=== PATIENT | female | born 1985 | race Caucasian/White ===

== ENCOUNTER → 2020-06-14 10:53 | Outpatient (BNVA) | payer OTHER, SELFPAY | PROVIDERS: Visit Provider Nurse Practitioner Family | DX: E03.9 Hypothyroidism, unspecified (principal) | CPT/HCPCS: 84443 ==

== ENCOUNTER 2020-09-10 14:51 | Outpatient (CLI) | payer OTHER, SELFPAY ==
--- NOTE | 2020-09-10 15:18 | XR_ITS ---
WS: [id number] CERVICAL SPINE 3 VIEWS HISTORY: M54.2 - Cervicalgia COMPARISON: None available. Straightening and slight reversal normal cervical lordosis centered at C5-C6. C5 retrolisthesis by 3 mm. Small osteophytes at C5 and C6. No fracture. Lateral masses are aligned. Odontoid is intact. Soft tissues are normal. XR/XR cervical spine 3V* [id number] IMPRESSION: 1. Straightening and reversal normal cervical lordosis centered at C5-6. 2. C5 retrolisthesis by 3 mm.
== END 2020-09-10 14:52 | disposition home or self-care (01) ==
PROVIDERS: PCP Nurse Practitioner Family; Visit Provider Nurse Practitioner Family
DX: M54.2 Cervicalgia (principal)
CPT/HCPCS: 72040

== ENCOUNTER → 2021-12-02 16:03 | Outpatient (BNVA) | payer BC, SELFPAY | PROVIDERS: PCP Nurse Practitioner Family; Visit Provider Nurse Practitioner Family | DX: R30.0 Dysuria (principal); R31.9 Hematuria, unspecified; N39.0 Urinary tract infection, site not specified | CPT/HCPCS: 81000; 87086 ==

== ENCOUNTER 2022-03-02 17:42 | Emergency (ER) | payer BC, SELFPAY ==
[2022-03-02 17:59] VITALS: BP 156/124; PULSE 123; RESP 20; TEMP 37.3; O2SAT 96
--- NOTE | 2022-03-02 18:07 | ECG_ITS ---
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 Measurements Intervals [place] Rate: 132 P: 47 KS: 127 QRS: 86 QRSD: 82 T: 33 QT: 379 QTc: 563 Interpretive Statements SINUS TACHYCARDIA NONSPECIFIC T-WAVE ABNORMALITY No previous ECG available for comparison Electronically Signed On 03-03-2022 6:19:05 VENEER TRIMMER by Austin Conteh M.D. [email or web address] Investment Fundsumma health.Wize/store/NU/[id number] f
--- NOTE | 2022-03-02 18:23 | XRR_ITS ---
PROCEDURE INFORMATION: Exam: XR Chest Exam date and time: 03/02/2022 6:32 PM Age: 36 years old Clinical indication: Radiating; Patient HX: Chest pain and hypertension; Additional info: Chest pain, HTN TECHNIQUE: Imaging protocol: Radiologic exam of the chest. Views: 1 view. COMPARISON: CR XR cervical spine 3V* [id number] 09/10/2020 3:22 PM FINDINGS: Lungs: Mildly hyperaerated lungs consistent with deep inspiratory effort vs reactive airway disease vs mild COPD . Pleural spaces: Unremarkable. No pleural effusion. No pneumothorax. Heart/Mediastinum: Unremarkable. No cardiomegaly. Bones/joints: Unremarkable. Other findings: Metallic postoperative changes over the thoracolumbar spine with metallic artifact. XR/XR chest 1V portable [id number] IMPRESSION: Mildly hyperaerated lungs consistent with deep inspiratory effort vs reactive airway disease vs mild COPD .
[2022-03-02 18:57] LABS: Basophils # 0.1 10^3/uL (0.0-0.1); Eosinophils % 0.2 %; Hematocrit 47.2 % (37.0-47.0); Hemoglobin 16.4 g/dL (11.5-15.3); Lymphocytes # 1.2 10^3/uL (0.8-4.8); Lymphocytes % 24.3 %; Mean Corpuscular HGB Conc 34.7 g/dL (30.0-36.0); Mean Corpuscular Volume 89.2 fl (81-99); Mean Platelet Volume 10.2 fL (7.4-10.4); Monocytes # 0.8 10^3/uL (0.2-0.9); Monocytes % 16.1 %; Neutrophils # 2.97 10^3/uL (1.8-7.7); Neutrophils % 58.2 %; Nucleated Red Blood Cells % 0 %; Platelet Count 269 10^3/cmm (130-400); Red Blood Count 5.29 10^6/uL (4.1-5.3); Red Cell Distribution Width 12.2 % (12.1-15.1); White Blood Count 5.1 10^3/uL (4.0-10.0)
[2022-03-02 19:16] LABS: D Dimer 0.34 ug/mIFEU (0-0.59)
[2022-03-02 19:28] LABS: Troponin(5th) Baseline 6 ng/L (0-10)
[2022-03-02 19:34] LABS: Alanine Aminotransferase 18 U/L (0-33); Albumin Level 4.1 g/dL (3.5-5.2); Alkaline Phosphatase 98 U/L (35-105); Anion Gap 17.6 (5-19); Aspartate Amino Transferase 18 U/L (0-32); Blood Urea Nitrogen 9 mg/dL (6-20); Calcium 9.2 mg/dL (8.5-10.5); Carbon Dioxide 24 mmol/L (22-29); Chloride 99 mmol/L (98-107); Globulin 3.9 g/dL (1.3-4.6); Glomerular Filtration Rate 80.3 mL/min (90-130); Glucose 110 mg/dL (65-115); NT Pro B Type Natriuretic Pept 5 pg/mL (0-125); Osmolality Calculated 285 mOsm/kg (285-295); Sodium 138 mmol/L (136-145); Total Bilirubin 0.7 mg/dL (0.15-1.2)
[2022-03-02 19:39] LABS: Potassium 2.6 mmol/L (3.5-5.1)
--- NOTE | 2022-03-02 19:40 | PC.NURSE ---
Critical lab K+ 2.6. Jeremiah Perrin notified
[2022-03-02] MEDS: potassium chloride ER 20 mEq Tablet 40 MEQ PO (20:12)
[2022-03-02 20:13] VITALS: BP 169/99; PULSE 117; RESP 18; O2SAT 97
--- NOTE | 2022-03-02 20:16 | ED_ITS ---
Documented by User: CHADWICK Majano 03/02/22 20:39 HPI - Chest Pain General: Chief Complaint: Chest Pain Stated Complaint: high BP Time Seen by Provider: 03/02/22 20:15 History of Present Illness: 36-year-old female comes in today with complaints of headache, chest discomfort, rapid heart rate, and elevated blood pressure. Patient has been treated for hypertension over the last couple of months with hydrochlorothiazide. Patient is noticed over the past 2 weeks an increase in her blood pressure. Patient appears nontoxic. Patient is alert and responds appropriately to questions. Patient appears in no pain. Patient reports improvement in chest discomfort since arriving to the ER. Associated symptoms: Deny dyspnea or fever(s) Review of Systems Const: Denies: fever(s) Card: Denies: chest pain Resp: Denies: dyspnea PFSH ED 2 PFSH: Social History (Updated 01/30/22 @ 09:25 by Leatha Chin LPN) Smoking and tobacco status: never smoked Second hand smoke exposure: No Alcohol intake: never Lives independently: Yes Household members: spouse and children Housing: House Marital status: Physical Exam Const: COMMON NORMALS: alert HENMT: COMMON NORMALS: normocephalic HEAD & SCALP: normocephalic Resp: COMMON NORMALS: normal respiratory effort and clear to auscultation bilaterally AUSCULTATION: clear to auscultation bilaterally Cardio: COMMON NORMALS: regular rhythm RATE: tachycardic RHYTHM: regular rhythm GI: COMMON NORMALS: Soft to palpation and non-tender PALPATION: Yes Soft to palpation Extremity: NARRATIVE EXTREMITY EXAM: Mild ankle puffiness but no significant edema Neuro: SENSORIUM/ORIENTATION: Yes alert Skin: COMMON NORMALS: turgor normal GENERAL SKIN EXAM: turgor normal Course Vital Signs: Vital signs: Vital Signs Temperature 99.1 F 03/02/22 17:59 Pulse Rate 116 H 03/02/22 20:55 Respiratory Rate 15 03/02/22 20:55 Blood Pressure 135/96 03/02/22 20:55 Pulse Oximetry 97 03/02/22 20:55 MDM - Chest Pain Medical Decision Making 36-year-old female comes in today with complaints of chest discomfort, h ypertension, rapid heart rate, and headache. On exam patient does have some tachycardia in the 120s, blood pressure is elevated in the 150s systolic, heart tones are normal. Abdomen soft nontender. Lungs are clear to auscultation. Patient has some mild bilateral ankle puffiness. Differential diagnosis includes but not limited to CHF, ACS, electrolyte imbalance, uncontrolled hypertension. CMP noted a potassium of 2.6. Lung x-rays were clear. EKG was notable for some tachycardia. Troponin was within normal range. CBC was unremarkable. Patient was given 40 mill equivalents of potassium for replacement. Patient be kept on potassium 20 mg daily for the next 7 days. Recommend follow-up with primary care tomorrow morning for appointment scheduling and review of medications and further recommendations. Patient was given a clonidine x1 for elevated blood pressure. Lab Data 03/02/22 18:45 03/02/22 18:45 Radiology Impressions Chest X-Ray 03/02/22 18:23 IMPRESSION: Mildly hyperaerated lungs consistent with deep inspiratory effort vs reactive airway disease vs mild COPD . Laboratory Results WBC 5.1 10^3/uL (4.0-10.0) 03/02/22 18:45 RBC 5.29 10^6/uL (4.1-5.3) 03/02/22 18:45 Hgb 16.4 g/dL (11.5-15.3) H 03/02/22 18:45 Hct 47.2 % (37.0-47.0) H 03/02/22 18:45 MCV 89.2 fl (81-99) 03/02/22 18:45 MCH 31.0 pg (28.0-34.0) 03/02/22 18:45 MCHC 34.7 g/dL (30.0-36.0) 03/02/22 18:45 RDW 12.2 % (12.1-15.1) 03/02/22 18:45 Plt Count 269 10^3/cmm (130-400) 03/02/22 18:45 MPV 10.2 fL (7.4-10.4) 03/02/22 18:45 Neut % (Auto) 58.2 % 03/02/22 18:45 Lymph % (Auto) 24.3 % 03/02/22 18:45 Isabella % (Auto) 16.1 % 03/02/22 18:45 Eos % (Auto) 0.2 % 03/02/22 18:45 Baso % (Auto) 1.0 % 03/02/22 18:45 Neut # (Auto) 2.97 10^3/uL (1.8-7.7) 03/02/22 18:45 Lymph # (Auto) 1.2 10^3/uL (0.8-4.8) 03/02/22 18:45 Isabella # (Auto) 0.8 10^3/uL (0.2-0.9) 03/02/22 18:45 Eos # (Auto) 0.0 10^3/uL (0.0-0.8) 03/02/22 18:45 Baso # (Auto) 0.1 10^3/uL (0.0-0.1) 03/02/22 18:45 Nucleated RBC % (auto) 0 % 03/02/22 18:45 Nucleated RBCs # 0.0 /100WBC 03/02/22 18:45 D-Dimer 0.34 ug/mIFEU (0-0.59) 03/02/22 18:45 Sodium 138 mmol/L (136-145) 03/02/22 18:45 Potassium 2.6 mmol/L (3.5-5.1) L* 03/02/22 18:45 Chloride 99 mmol/L (98-107) 03/02/22 18:45 Carbon Dioxide 24 mmol/L (22-29) 03/02/22 18:45 Anion Gap 17.6 (5-19) 03/02/22 18:45 BUN 9 mg/dL (6-20) 03/02/22 18:45 Creatinine 0.8 mg/dL (0.5-0.9) 03/02/22 18:45 GFR Calculation 80.3 mL/min (90-130) L 03/02/22 18:45 Glucose 110 mg/dL (65-115) 03/02/22 18:45 Calculated Osmolality 285 mOsm/kg (285-295) 03/02/22 18:45 Calcium 9.2 mg/dL (8.5-10.5) 03/02/22 18:45 Total Bilirubin 0.7 mg/dL (0.15-1.2) 03/02/22 18:45 AST 18 U/L (0-32) 03/02/22 18:45 ALT 18 U/L (0-33) 03/02/22 18:45 Alkaline Phosphatase 98 U/L (35-105) 03/02/22 18:45 Troponin T Baseline 6 ng/L (0-10) 03/02/22 18:45 NT-Pro-B Natriuret Pep 5 pg/mL (0-125) 03/02/22 18:45 Total Protein 8.0 g/dL (6.6-8.7) 03/02/22 18:45 Albumin 4.1 g/dL (3.5-5.2) 03/02/22 18:45 Globulin 3.9 g/dL (1.3-4.6) 18 18:45 HCG, Qual Negative (Negative) 03/02/22 19:59 Urine Color Yellow (Yellow) 03/02/22 19:59 Urine Appearance Clear (CLEAR) 03/02/22 19:59 Urine pH 7 (5-7) 03/02/22 19:59 Ur Specific Goode 1.010 (1.005-1.030) 03/02/22 19:59 Urine Protein Neg (Negative) 03/02/22 19:59 Urine Glucose (UA) Norm (Normal) 03/02/22 19:59 Urine Ketones Negative (Negative) 03/02/22 19:59 Urine Blood Trace (Negative) H 03/02/22 19:59 Urine Nitrate Negative (Negative) 03/02/22 19:59 Urine Bilirubin Neg (Negative) 03/02/22 19:59 Urine Urobilinogen Norm mg/dL (Negative) 03/02/22 19:59 Ur Leukocyte Esterase Negative (Negative) 03/02/22 19:59 Urine RBC 0-4 /hpf (0-2) H 18 19:59 Urine WBC None /hpf (0-5) 18 19:59 Ur Squamous Epith Cells None /hpf (0-5) 03/02/22 19:59 Amorphous Sediment Not Reportable 03/02/22 19:59 Urine Bacteria Trace /hpf (NONE) 18 19:59 Discharge Plan Discharge Patient Disposition: Home Clinical Impression: Hypokalemia HTN (hypertension) Qualifiers: Hypertension type: unspecified Qualified Code(s): I10 - Essential (primary) hypertension Condition: Stable Prescriptions: New potassium chloride 20 mEq tablet extended release 20 meq PO DAILY Qty: 7 0RF No Action medroxyprogesterone [Depo-Provera] 150 mg/mL suspension IM hydrochlorothiazide 25 mg tablet See Rx Instructions .ROUTE .COMPLEX Qty: 90 1RF Dose Instruction: Take 1 tablet by mouth once daily Rx Instructions: Take 1 tablet by mouth once daily cyclobenzaprine 10 mg tablet See Rx Instructions .ROUTE .COMPLEX Qty: 30 0RF Dose Instruction: TAKE 1 TABLET BY MOUTH AT BEDTIME NEEDED FOR MUSCLE SPASM Rx Instructions: TAKE 1 TABLET BY MOUTH AT BEDTIME NEEDED FOR MUSCLE SPASM Discharge Orders: Discharge ED (Routine); Ordered 03/02/22 Ordered By: Luis Perrin Referrals: Sho Lynn FNP [Primary Care Provider] - Discharge Diet: Usual diet Patient Instructions: Hypertension (ED) Activity Restrictions/Additional Instructions: Home and rest. Eat a healthy diet with plenty of fresh fruits and vegetables. Continue with routine medications until follow-up with primary care. Take potassium daily. Return to ER for facial drooping, difficulty with speech, severe headache, severe chest pain, shortness of breath, or new concerns. Coding Level of Care Code ED Technical Programs Manager for Chg Fwd Exam Detailed Documented by User: Mir Mills DO 03/03/22 02:25 HPI - Chest Pain General: Chief Complaint: Chest Pain Stated Complaint: high BP Time Seen by Provider: 03/02/22 20:15 [facility] ED PFS: Social History (Updated 01/30/22 @ 09:25 by Leatha Chin LPN) Smoking and tobacco status: never smoked Second hand smoke exposure: No Alcohol intake: never Lives independently: Yes Household members: spouse and children Housing: House Marital status: Course Vital Signs: Vital signs: Vital Signs Temperature 99.1 F 03/02/22 17:59 Pulse Rate 116 H 03/02/22 20:55 Respiratory Rate 15 03/02/22 20:55 Blood Pressure 135/96 03/02/22 20:55 Pulse Oximetry 97 03/02/22 20:55 MDM - Chest Pain Medical Decision Making 36-year-old female comes in today with complaints of chest discomfort, hypertension, rapid heart rate, and headache. On exam patient does have some tachycardia in the 120s, blood pressure is elevated in the 150s systolic, heart tones are normal. Abdomen soft nontender. Lungs are clear to auscultation. Patient has some mild bilateral ankle puffiness. Differential diagnosis includes but not limited to CHF, ACS, electrolyte imbalance, uncontrolled hypertension. CMP noted a potassium of 2.6. Lung x-rays were clear. EKG was notable for some tachycardia. Troponin was within normal range. CBC was unremarkable. Patient was given 40 mill equivalents of potassium for replacement. Patient be kept on potassium 20 mg daily for the next 7 days. Recommend follow-up with primary care tomorrow morning for appointment scheduling and review of medications and further recommendations. Patient was given a clonidine x1 for elevated blood pressure. This patient was originally seen by CHADWICK Soriano.? I agree with his history, evaluation, and treatment. Lab Data 03/02/22 18:45 03/02/22 18:45 Radiology Impressions Chest X-Ray 03/02/22 18:23 IMPRESSION: Mildly hyperaerated lungs consistent with deep inspiratory effort vs reactive airway disease vs mild COPD . Laboratory Results WBC 5.1 10^3/uL (4.0-10.0) 03/02/22 18:45 RBC 5.29 10^6/uL (4.1-5.3) 03/02/22 18:45 Hgb 16.4 g/dL (11.5-15.3) H 03/02/22 18:45 Hct 47.2 % (37.0-47.0) H 03/02/22 18:45 MCV 89.2 fl (81-99) 03/02/22 18:45 MCH 31.0 pg (28.0-34.0) 03/02/22 18:45 MCHC 34.7 g/dL (30.0-36.0) 03/02/22 18:45 RDW 12.2 % (12.1-15.1) 03/02/22 18:45 Plt Count 269 10^3/cmm (130-400) 03/02/22 18:45 MPV 10.2 fL (7.4-10.4) 03/02/22 18:45 Neut % (Auto) 58.2 % 03/02/22 18:45 Lymph % (Auto) 24.3 % 03/02/22 18:45 Isabella % (Auto) 16.1 % 03/02/22 18:45 Eos % (Auto) 0.2 % 03/02/22 18:45 Baso % (Auto) 1.0 % 03/02/22 18:45 Neut # (Auto) 2.97 10^3/uL (1.8-7.7) 03/02/22 18:45 Lymph # (Auto) 1.2 10^3/uL (0.8-4.8) 03/02/22 18:45 Isabella # (Auto) 0.8 10^3/uL (0.2-0.9) 03/02/22 18:45 Eos # (Auto) 0.0 10^3/uL (0.0-0.8) 03/02/22 18:45 Baso # (Auto) 0.1 10^3/uL (0.0-0.1) 03/02/22 18:45 Nucleated RBC % (auto) 0 % 03/02/22 18:45 Nucleated RBCs # 0.0 /100WBC 03/02/22 18:45 D-Dimer 0.34 ug/mIFEU (0-0.59) 03/02/22 18:45 Sodium 138 mmol/L (136-145) 03/02/22 18:45 Potassium 2.6 mmol/L (3.5-5.1) L* 03/02/22 18:45 Chloride 99 mmol/L (98-107) 03/02/22 18:45 Carbon Dioxide 24 mmol/L (22-29) 03/02/22 18:45 Anion Gap 17.6 (5-19) 03/02/22 18:45 BUN 9 mg/dL (6-20) 03/02/22 18:45 Creatinine 0.8 mg/dL (0.5-0.9) 03/02/22 18:45 GFR Calculation 80.3 mL/min (90-130) L 03/02/22 18:45 Glucose 110 mg/dL (65-115) 03/02/22 18:45 Calculated Osmolality 285 mOsm/kg (285-295) 03/02/22 18:45 Calcium 9.2 mg/dL (8.5-10.5) 03/02/22 18:45 Total Bilirubin 0.7 mg/dL (0.15-1.2) 03/02/22 18:45 AST 18 U/L (0-32) 03/02/22 18:45 ALT 18 U/L (0-33) 03/02/22 18:45 Alkaline Phosphatase 98 U/L (35-105) 03/02/22 18:45 Troponin T Baseline 6 ng/L (0-10) 03/02/22 18:45 NT-Pro-B Natriuret Pep 5 pg/mL (0-125) 03/02/22 18:45 Total Protein 8.0 g/dL (6.6-8.7) 03/02/22 18:45 Albumin 4.1 g/dL (3.5-5.2) 03/02/22 18:45 Globulin 3.9 g/dL (1.3-4.6) 03/02/22 18:45 HCG, Qual Negative (Negative) 03/02/22 19:59 Urine Color Yellow (Yellow) 03/02/22 19:59 Urine Appearance Clear (CLEAR) 03/02/22 19:59 Urine pH 7 (5-7) 03/02/22 19:59 Ur Specific Goode 1.010 (1.005-1.030) 03/02/22 19:59 Urine Protein Neg (Negative) 03/02/22 19:59 Urine Glucose (UA) Norm (Normal) 03/02/22 19:59 Urine Ketones Negative (Negative) 03/02/22 19:59 Urine Blood Trace (Negative) H 03/02/22 19:59 Urine Nitrate Negative (Negative) 03/02/22 19:59 Urine Bilirubin Neg (Negative) 03/02/22 19:59 Urine Urobilinogen Norm mg/dL (Negative) 03/02/22 19:59 Ur Leukocyte Esterase Negative (Negative) 03/02/22 19:59 Urine RBC 0-4 /hpf (0-2) H 03/02/22 19:59 Urine WBC None /hpf (0-5) 03/02/22 19:59 Ur Squamous Epith Cells None /hpf (0-5) 03/02/22 19:59 Amorphous Sediment Not Reportable 03/02/22 19:59 Urine Bacteria Trace /hpf (NONE) 03/02/22 19:59 Discharge Plan Discharge Patient Disposition: Home Clinical Impression: Hypokalemia HTN (hypertension) Qualifiers: Hypertension type: unspecified Qualified Code(s): I10 - Essential (primary) hypertension Condition: Stable Prescriptions: New potassium chloride 20 mEq tablet extended release 20 meq PO DAILY Qty: 7 0RF No Action medroxyprogesterone [Depo-Provera] 150 mg/mL suspension IM hydrochlorothiazide 25 mg tablet See Rx Instructions .ROUTE .COMPLEX Qty: 90 1RF Dose Instruction: Take 1 tablet by mouth once daily Rx Instructions: Take 1 tablet by mouth once daily cyclobenzaprine 10 mg tablet See Rx Instructions .ROUTE .COMPLEX Qty: 30 0RF Dose Instruction: TAKE 1 TABLET BY MOUTH AT BEDTIME NEEDED FOR MUSCLE SPASM Rx Instructions: TAKE 1 TABLET BY MOUTH AT BEDTIME NEEDED FOR MUSCLE SPASM Discharge Orders: Discharge ED (Routine); Ordered 03/02/22 Ordered By: Luis Perrin Referrals: Sho Lynn FNP [Primary Care Provider] - Discharge Diet: Usual diet Patient Instructions: Hypertension (ED) Activity Restrictions/Additional Instructions: Home and rest. Eat a healthy diet with plenty of fresh fruits and vegetables. Continue with routine medications until follow-up with primary care. Take potassium daily. Return to ER for facial drooping, difficulty with speech, severe headache, severe chest pain, shortness of breath, or new concerns. Coding Level of Care Code ED Technical Programs Manager for [place] Fwd Exam Detailed
[2022-03-02 20:22] VITALS: BP 169/99
[2022-03-02] MEDS: cloNIDine 0.1 mg Tablet PO (20:22)
[2022-03-02 20:25] LABS: HCG Qualitative Urine. Negative (Negative)
[2022-03-02 20:53] LABS: Add Urine Microscopic? YES; Bilirubin Urine Neg (Negative); Blood Urine Trace (Negative); Glucose Urine UA Norm (Normal); Ketones Urine Negative (Negative); Leukocyte Esterase Urine Negative (Negative); Nitrate Urine Negative (Negative); Protein Urine Neg (Negative); Urine Appearance Clear (CLEAR); Urine Color Yellow (Yellow); Urobilinogen Urine Norm (Negative); pH Urine 7 (5-7)
[2022-03-02 20:54] LABS: RBC Urine 0-4 /hpf (0-2)
[2022-03-02 20:55] VITALS: BP 135/96; PULSE 116; RESP 15; O2SAT 97
[2022-03-02 20:55] LABS: Add Urine Culture? No; Bacteria Urine TRACE /hpf
== END 2022-03-02 20:52 | disposition home or self-care (01) ==
PROVIDERS: Emergency Provider Nurse Practitioner Family; PCP Nurse Practitioner Family
DX: E87.6 Hypokalemia (principal); I10 Essential (primary) hypertension
CPT/HCPCS: 36415; 71045; 80053; 81001; 81025; 83880; 84484; 85025; 85378; 93005; 99285

== ENCOUNTER → 2022-03-25 16:12 | Outpatient (BNVA) | payer BC, SELFPAY | PROVIDERS: PCP Nurse Practitioner Family; Visit Provider Nurse Practitioner Family | DX: E87.6 Hypokalemia (principal) | CPT/HCPCS: 80053 ==

== ENCOUNTER → 2022-04-21 11:32 | Outpatient (BNVA) | payer BC, SELFPAY | PROVIDERS: PCP Nurse Practitioner Family; Visit Provider Nurse Practitioner Family | DX: E87.6 Hypokalemia (principal); F41.9 Anxiety disorder, unspecified | CPT/HCPCS: 80053 ==

== ENCOUNTER 2022-04-23 22:47 | Emergency (ER) | payer BC, SELFPAY ==
[2022-04-23 22:54] VITALS: BP 172/103; PULSE 80; RESP 18; TEMP 36.2; O2SAT 96; BMI 33.2
--- NOTE | 2022-04-23 22:59 | ECG_ITS ---
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 Measurements Intervals [place] Rate: 73 P: 50 ME: 142 QRS: 71 QRSD: 82 T: 36 QT: 376 QTc: 417 Interpretive Statements SINUS RHYTHM WITH SINUS ARRHYTHMIA LOW QRS VOLTAGE IN PRECORDIAL LEADS [QRS DEFLECTION < 1.0 mV IN CHEST LEADS] Compared to ECG 03/02/2022 18:07:17 Low QRS voltage now present Sinus tachycardia no longer present T-wave abnormality no longer present Electronically Signed On 04-24-2022 0:13:59 BAND SPLITTER by Bel Terrell M.D. [email or web address].[email or web address] [place].[employer]/store/NU/[id number]/[id number] cintia
[2022-04-23 23:28] LABS: Basophils # 0.1 10^3/uL (0.0-0.1); Basophils % 1.1 %; Eosinophils # 0.1 10^3/uL (0.0-0.8); Eosinophils % 1.2 %; Hematocrit 47.2 % (37.0-47.0); Hemoglobin 15.7 g/dL (11.5-15.3); Lymphocytes # 3.1 10^3/uL (0.8-4.8); Lymphocytes % 37.1 %; Mean Corpuscular HGB Conc 33.3 g/dL (30.0-36.0); Mean Corpuscular Hemoglobin 29.8 pg (28.0-34.0); Mean Corpuscular Volume 89.6 fl (81-99); Mean Platelet Volume 9.8 fL (7.4-10.4); Monocytes # 0.8 10^3/uL (0.2-0.9); Neutrophils # 4.33 10^3/uL (1.8-7.7); Neutrophils % 51.4 %; Nucleated Red Blood Cells % 0 %; Platelet Count 311 10^3/cmm (130-400); Red Blood Count 5.27 10^6/uL (4.1-5.3); Red Cell Distribution Width 12.2 % (12.1-15.1); White Blood Count 8.4 10^3/uL (4.0-10.0)
[2022-04-23 23:47] LABS: Troponin(5th) Baseline 7 ng/L (0-10)
[2022-04-23 23:48] LABS: Alanine Aminotransferase 15 U/L (0-33); Albumin Level 4.4 g/dL (3.5-5.2); Alkaline Phosphatase 105 U/L (35-105); Anion Gap 15.7 (5-19); Aspartate Amino Transferase 15 U/L (0-32); Blood Urea Nitrogen 9 mg/dL (6-20); Calcium 9.1 mg/dL (8.5-10.5); Carbon Dioxide 24 mmol/L (22-29); Chloride 103 mmol/L (98-107); Globulin 2.8 g/dL (1.3-4.6); Glomerular Filtration Rate 93.6 mL/min (90-130); Glucose 92 mg/dL (65-115); Osmolality Calculated 286 mOsm/kg (285-295); Potassium 3.7 mmol/L (3.5-5.1); Sodium 139 mmol/L (136-145); Total Bilirubin 0.6 mg/dL (0.15-1.2); Total Protein 7.2 g/dL (6.6-8.7)
--- NOTE | 2022-04-23 23:50 | ED_ITS ---
HPI - Chest Pain General: Chief Complaint: Chest Pain Stated Complaint: high blood pressure, MARSHALL, tingly Time Seen by Provider: 04/23/22 23:43 Source: patient Mode of arrival: ambulatory Limitations: no limitations History of Present Illness: 28-year-old female states that she is struggled with high blood pressure over the last few months. States she was on HCTZ they changed to due to her having low potassium she states that she takes 25 mg of metoprolol but she states today her blood pressure is running high and she is having a headache with some chest pain. She states she just started the metop rolol last few days she denies any pain currently she denies any worsening proving factors. Associated symptoms: Deny abdominal pain, dyspnea, fever(s), nausea or vomiting Review of Systems Const: Denies: fever(s), chills, body aches or change in appetite Eyes: Denies: blurry vision or eye discomfort ENMT: Denies: throat pain or dental pain Card: Denies: chest pain Resp: Denies: dyspnea GI: Denies: abdominal pain, nausea, vomiting or diarrhea : Denies: dysuria Musc: Denies: neck pain or back pain Skin/Breast: Denies: rash Neuro: Denies: headache(s) Psych: Denies: depression Tony/Lymph: Denies: easy bruising All/Imm: Denies: urticaria PFSH ED PFSH: Surgical History History of back surgery Hx of left knee surgery Hx of tonsillectomy Hx of wisdom tooth extraction Family History Father CAD (coronary artery disease) Cancer Hypertension Hyperlipidemia Grandmother Cancer Dementia Family/Other Cancer Grandfather Chronic kidney disease (CKD) Denies family history of Diabetes Lung disease Stroke Social History Smoking and tobacco status: never smoked Second hand smoke exposure: No Alcohol intake: never Adopted: No Lives independently: Yes Household members: spouse and children Housing: House Marital status: Physical Exam Const: COMMON NORMALS: no acute distress, patient oriented x3 and healthy appearing HENMT: COMMON NORMALS: normocephalic and atraumatic HEAD & SCALP: normocephalic and atraumatic Eye: COMMON NORMALS: Equal, round and reactive pupils present and EOMs intact bilaterally PUPIL: Yes Equal, round and reactive pupils present Neck/C-Spine: COMMON NORMALS: full ROM and supple Chest: COMMONS NORMALS: normal inspection of the chest and normal palpation of entire chest wall Resp: COMMON NORMALS: normal respiratory effort, No retractions, No use of accessory muscles and clear to auscultation bilaterally AUSCULTATION: clear to auscultation bilaterally Cardio: COMMON NORMALS: regular rate, regular rhythm and No murmurs present (Cardio) RATE: regular rate RHYTHM: regular rhythm GI: COMMON NORMALS: Normal to inspection, nondistended, normoactive bowel sounds present, Soft to palpation, non-tender and no masses PALPATION: Yes Soft to palpation Extremity: COMMON NORMALS: normal to inspection and full ROM Neuro: COMMON NORMALS: patient oriented x3, moves all extremities and no focal motor deficits Psych: COMMON NORMALS: mental status grossly normal, Normal thought process present and cooperative THOUGHT PROCESS: Normal thought process present Skin: COMMON NORMALS: no rashes or lesions noted and no wounds GENERAL SKIN EXAM: no rashes or lesions noted Course Vital Signs: Vital signs: Vital Signs Temperature 97.2 F L 04/23/22 22:54 Pulse Rate 85 04/24/22 01:00 Respiratory Rate 20 H 04/24/22 01:00 Blood Pressure 157/99 04/24/22 01:00 Pulse Oximetry 98 04/24/22 01:00 Oxygen Delivery Me thod 04/23/22 23:59 MDM - Chest Pain Medical Decision Making Patient presents here with hypertension her blood pressure has improved she had chest pains as well but they are atypical her troponins here are normal she is stable for discharge at this time we will increase her metoprolol she is to follow-up with her PCP and return if worsening she understands agrees to plan. Lab Data 04/23/22 23:19 04/23/22 23:19 Laboratory Results WBC 8.4 10^3/uL (4.0-10.0) 04/23/22 23:19 RBC 5.27 10^6/uL (4.1-5.3) 04/23/22 23:19 Hgb 15.7 g/dL (11.5-15.3) H 04/23/22 23:19 Hct 47.2 % (37.0-47.0) H 04/23/22 23: MCV 89.6 fl (81-99) 04/23/22 23: MCH 29.8 pg (28.0-34.0) 04/23/22 23: MCHC 33.3 g/dL (30.0-36.0) 04/23/22 23: RDW 12.2 % (12.1-15.1) 04/23/22 23: Plt Count 311 10^3/cmm (130-400) 04/23/22 23: MPV 9.8 fL (7.4-10.4) 04/23/22 23: Neut % (Auto) 51.4 % 04/23/22 23: Lymph % (Auto) 37.1 % 04/23/22 23: [place] % (Auto) 9.0 % 04/23/22 23: Eos % (Auto) 1.2 % 04/23/22 23: Baso % (Auto) 1.1 % 04/23/22 23: Neut # (Auto) 4.33 10^3/uL (1.8-7.7) 04/23/22 23: Lymph # (Auto) 3.1 10^3/uL (0.8-4.8) 04/23/22 23: [place] # (Auto) 0.8 10^3/uL (0.2-0.9) 04/23/22 23: Eos # (Auto) 0.1 10^3/uL (0.0-0.8) 04/23/22 23: Baso # (Auto) 0.1 10^3/uL (0.0-0.1) 04/23/22 23: Nucleated RBC % (auto) 0 % 04/23/22: Nucleated RBCs # 0.0 /100WBC 04/23/22 23: Sodium 139 mmol/L (136-145) 04/23/22 23:19 Potassium 3.7 mmol/L (3.5-5.1) 04/23/22 23: Chloride 103 mmol/L (98-107) 04/23/22 23: Carbon Dioxide 24 mmol/L (22-29) 04/23/22 23:19 Anion Gap 15.7 (5-19) 04/23/22 23:19 BUN 9 mg/dL (6-20) 04/23/22 23:19 Creatinine 0.7 mg/dL (0.5-0.9) 04/23/22 23:19 GFR Calculation 93.6 mL/min (90-130) 04/23/22 23:19 Glucose 92 mg/dL (65-115) 04/23/22 23:19 Calculated Osmolality 286 mOsm/kg (285-295) 04/23/22 23:19 Calcium 9.1 mg/dL (8.5-10.5) 04/23/22 23:19 Total Bilirubin 0.6 mg/dL (0.15-1.2) 04/23/22 23:19 AST 15 U/L (0-32) 04/23/22 23:19 ALT 15 U/L (0-33) 04/23/22 23:19 Alkaline Phosphatase 105 U/L (35-105) 04/23/22 23:19 Troponin T Baseline 7 ng/L (0-10) 04/23/22 23:19 Troponin T 120 Minute 7.43 ng/L (0-10) 04/24/22 00:58 Total Protein 7.2 g/dL (6.6-8.7) 04/23/22 23:19 Albumin 4.4 g/dL (3.5-5.2) 04/23/22 23:19 Globulin 2.8 g/dL (1.3-4.6) 04/23/22 23:19 Discharge Plan Discharge Patient Disposition: Home Clinical Impression: HTN (hypertension), Chest pain Condition: Stable Prescriptions: New metoprolol succinate 50 mg tablet extended release 24 hr 50 mg PO DAILY Qty: 30 0RF Discontinued metoprolol succinate 25 mg tablet extended release 24 hr 25 mg PO DAILY Qty: 30 0RF No Action fluoxetine 20 mg capsule 20 mg PO BID Qty: 60 0RF Rx Instructions: administer in the morning and at noon/midday cyclobenzaprine 10 mg tablet See Rx Instructions .ROUTE .COMPLEX Qty: 30 0RF Dose Instruction: TAKE 1 TABLET BY MOUTH AT BEDTIME NEEDED FOR MUSCLE SPASM Rx Instructions: TAKE 1 TABLET BY MOUTH AT BEDTIME NEEDED FOR MUSCLE SPASM potassium chloride 20 mEq tablet extended release See Rx Instructions .ROUTE .COMPLEX Qty: 90 0RF Dose Instruction: Take 1 tablet by mouth once daily Rx Instructions: Take 1 tablet by mouth once daily Discharge Orders: Discharge ED (Routine); Ordered 04/24/22 Ordered By: Sonia Miller Referrals: Sho Lynn FNP [Primary Care Provider] - 1-3 days Discharge Diet: Advance as tolerated Discharge Activity: Resume usual activity Patient Instructions: Hypertension (ED) Coding Level of Care Code ED Residential Door Unit Installer for [place]
[2022-04-23] MEDS: hyDRALAzine 20 mg/mL INJ 1 mL 10 MG IVP (23:58)
[2022-04-23 23:59] VITALS: BP 178/133; PULSE 73; RESP 13; O2SAT 99
[2022-04-24 00:07] VITALS: BP 156/107; PULSE 79; RESP 19; O2SAT 98
[2022-04-24 00:29] VITALS: BP 151/107; PULSE 73; RESP 14; O2SAT 97
[2022-04-24 00:30] VITALS: BP 147/97; PULSE 75; RESP 14; O2SAT 97
[2022-04-24 01:00] VITALS: BP 157/99; PULSE 85; RESP 20; O2SAT 98
--- NOTE | 2022-04-24 01:02 | XRR_ITS ---
PROCEDURE INFORMATION: Exam: XR Chest Exam date and time: 04/24/2022 1:07 AM Age: 36 years old Clinical indication: Chest pressure; Patient HX: C/O chest pain. Hypertensive on monitor. ; Additional info: Cp TECHNIQUE: Imaging protocol: Radiologic exam of the chest. Views: 1 view. COMPARISON: CR (CHEST, ) 03/02/2022 6:32 PM FINDINGS: Lungs: Unremarkable. No consolidation. Pleural spaces: Unremarkable. No pleural effusion. No pneumothorax. Heart/Mediastinum: Unremarkable. No cardiomegaly. The technique accentuates heart size and vascularity. Bones/joints: Unremarkable. XR/XR chest 1V portable [id number] IMPRESSION: No acute findings.
[2022-04-24] MEDS: labetalol 5 mg/mL SDV 20mL 10 MG IVP (01:11)
--- NOTE | 2022-04-24 01:11 | ECG_ITS ---
[facility] Test Date: 2022-04-24 Pat Name: Modesto Brown Department: Room: Gender: Female Digital Strategist Senior Manager: : 1985 Requested By: Sonia Miller Order Number: [id number] Stef MD: Brenda Rivera M.D. Measurements Intervals [place] Rate: 72 P: 44 GA: 160 QRS: 82 QRSD: 77 T: 43 QT: 376 QTc: 414 Interpretive Statements SINUS RHYTHM POSSIBLE LEFT ATRIAL ENLARGEMENT [-0.1mV P-WAVE IN V1/V2] LOW QRS VOLTAGE IN PRECORDIAL LEADS [QRS DEFLECTION < 1.0 mV IN CHEST LEADS] SEPTAL MYOCARDIAL INFARCTION , OF INDETERMINATE AGE [40+ ms Q WAVE IN V1/V2] Compared to ECG 04/23/2022 22:59:50 Myocardial infarct finding now present Sinus arrhythmia no longer present Electronically Signed On 04-25-2022 8:16:32 SIEVE REPAIRER by Brenda Rivera M.D. [id number]
[2022-04-24 01:22] LABS: Troponin 5 2HR 7.43 ng/L (0-10)
[2022-04-24 01:30] VITALS: BP 147/102; PULSE 78; RESP 19; O2SAT 95
[2022-04-24 01:35] LABS: Troponin 5 2HR Delta 0.43 ABS# (0-10)
[2022-04-24 01:41] VITALS: BP 136/101; PULSE 80; RESP 18; O2SAT 97
== END 2022-04-24 01:44 | disposition home or self-care (01) ==
PROVIDERS: Emergency Provider Emergency Medicine; PCP Nurse Practitioner Family
DX: R07.9 Chest pain, unspecified (principal); I10 Essential (primary) hypertension
CPT/HCPCS: 71045; 80053; 84484; 85025; 93005; 96374; 96375; 99285; J0360; J3490

== ENCOUNTER → 2022-05-30 10:40 | Outpatient (BNVA) | payer BC, SELFPAY | PROVIDERS: PCP Nurse Practitioner Family; Visit Provider Nurse Practitioner Family | DX: E87.6 Hypokalemia (principal); R35.0 Frequency of micturition; G47.30 Sleep apnea, unspecified; I10 Essential (primary) hypertension | CPT/HCPCS: 81000; 87086 ==

== ENCOUNTER 2023-10-20 09:33 | Outpatient (CLI) | payer OTHER, SELFPAY ==
--- NOTE | 2023-10-20 10:00 | MM_ITS ---
WS: [id number] BILATERAL 3D TOMOSYNTHESIS DIGITAL SCREENING MAMMOGRAPHY WITH CAD CLINICAL INFORMATION: SCREENING HISTORY: Screening mammogram. No current complaints. COMPARISON: New baseline TECHNIQUE: Bilateral CC and MLO views. FINDINGS: The breasts are composed of heterogeneous fibroglandular density tissue, which can limit the detectio n of small underlying mass lesions. Several ovoid nodules upper outer RIGHT breast. Recommend RIGHT b reast diagnostic mammography and ultrasound. Unremarkable LEFT breast. MM/[place] [id number] IMPRESSION: BI-RADS: 0-Incomplete: Need additional imaging evaluation FOLLOW UP: Need Additional Imaging Recommend RIGHT breast diagnostic mammography and ultrasound in further evaluat ion.
== END 2023-10-20 09:34 | disposition home or self-care (01) ==
LOC: MOBLMAM 09:39
PROVIDERS: PCP Nurse Practitioner Family; Visit Provider Nurse Practitioner Family
DX: Z12.31 Encounter for screening mammogram for malignant neoplasm of breast (principal); R92.321 Mammographic fibroglandular density, right breast
CPT/HCPCS: 77063; 77067